=== PATIENT | female | born 1995 | race Caucasian/White ===

== ENCOUNTER 2018-01-29 19:05 | Observation (INO) ==
[2018-01-29] MEDS ORDERED: Morphine Inj 4 MG/ML Vial IV.PUSH ONE (19:27)
[2018-01-29] MEDS ORDERED: Sod Chloride 0.9% Inj 1,000 ML IV.SIG ONE (19:27)
[2018-01-29] MEDS ORDERED: Famotidine PF Inj 20 MG/2 ML Vial IV.PUSH ONE (20:07)
[2018-01-29] MEDS ORDERED: MethylPREDNISolone Sod Succinate Inj 125 MG/2 ML Vial IV.PUSH ONE (20:07)
[2018-01-29 20:09] LABS: Baso % (Auto) 0.5 % (0.0-2.0); Eos # (Auto) 0.1 th/mm3 (0.0-0.4); Eos % (Auto) 0.9 % (0.0-4.0); Hemoglobin 14.3 gm/dL (11.6-15.3); Lymph # (Auto) 2.1 th/mm3 (1.0-4.8); Lymph % (Auto) 20.5 % (9.0-44.0); Mean Corpuscular HGB Conc 33.2 % (32.0-36.0); Mean Corpuscular Hemoglobin 29.7 pg (27.0-34.0); Mean Corpuscular Volume 89.7 fL (80.0-100.0); Mean Platelet Volume 7.5 fL (7.0-11.0); Mono # (Auto) 0.5 th/mm3 (0.0-0.9); Mono % (Auto) 5.4 % (0.0-8.0); Neut # (Auto) 7.3 th/mm3 (1.8-7.7); Neut % (Auto) 72.7 % (16.0-70.0); Platelet Count 320 th/mm3 (150-450); Red Cell Distribution Width 13.4 % (11.6-17.2)
[2018-01-29 20:13] LABS: Amorphous Sediment,Urine Rare /hpf; Bilirubin,Urine Negative (Negative); Clarity,Urine Hazy (Clear); Color,Urine Yellow (Yellw/Straw); Glucose,Urine (UA) Negative (Negative); Leukocyte Esterase,Urine Negative (Negative); Mucus,Urine Few /lpf (Occasional); Nitrite,Urine Negative (Negative); Specific Gravity,Urine 1.017 (1.002-1.035); Squamous Epithelial Cell,Urine 9 /hpf (0-5)
[2018-01-29 20:20] LABS: Alanine Aminotransferase 26 U/L (9-42)
[2018-01-29 20:22] LABS: Alkaline Phosphatase 123 U/L (45-117); Total Protein 8.3 g/dL (6.4-8.2)
[2018-01-29 20:23] LABS: Albumin 4.2 g/dL (3.4-5.0); Anion Gap 7 meq/L (5-15); Aspartate Aminotransferase 23 U/L (16-38); Blood Urea Nitrogen 11 mg/dL (7-18); Calcium 8.9 mg/dL (8.5-10.1); Carbon Dioxide 26.7 meq/L (21.0-32.0); Chloride 105 meq/L (98-107); Glomerular Filtration Rate 74 mL/min (>89); Glucose,Random 87 mg/dL (74-106); Lipase 132 U/L (73-393); Potassium 3.8 meq/L (3.5-5.1); Sodium 139 meq/L (136-145)
--- NOTE | 2018-01-29 20:41 | CT ---
EXAM DATE: 01/29/2018 8:32 PM EDT AGE/SEX: 22 years / Female INDICATIONS: Right lower quadrant pain; possible appendicitis. CLINICAL DATA: This is the patient's initial encounter. Patient reports that signs and symptoms have been present for 1 day and indicates a pain score of 6/10. MEDICAL/SURGICAL HISTORY: Asthma. None. ORAL CONTRAST: No oral contrast ingested. RADIATION DOSE: 7.71 CTDI (mGy) COMPARISON: . TECHNIQUE: Multiple contiguous axial images were obtained through the abdomen and pelvis following b olus infusion of 96 ml Omnipaque 350 (iohexol) nonionic water-soluble contrast as a single exam dos e. No oral contrast ingested. Using automated exposure control and adjustment of the mA and/or kV ac cording to patient size, radiation dose was kept as low as reasonably achievable to obtain optimal di agnostic quality images. DICOM format image data is available electronically for review and comparis on. FINDINGS: Abdomen CT: The liver, spleen, pancreas, kidneys, adrenals are unremarkable. There is no evidence for any appreci able pathological adenopathy, free fluid, or bowel obstruction. Pelvic CT: There is no evidence for mass, abscess formation, or any significant adenopathy within the pelvis. T he appendix appears swollen measures almost 8 mm in size with strandy densities surrounding it. CONCLUSION: Acute appendicitis. Electronically signed by: Edgardo Mckinley MD 01/29/2018 8:39 PM EDT
--- NOTE | 2018-01-29 20:56 | ED ---
HPI General Chief Complaint: Abdominal Pain Stated Complaint: ABD Pain Time Seen by Provider: 01/29/18 19:27 Source: patient Mode of arrival: ambulatory Limitations: no limitations History of Present Illness MD complaint: abdominal pain Onset (ago): hour(s) (18) Pain Consistency: constant Location: RLQ Severity: moderate Quality: cramping and aching Radiation: epigastric Migration to: LUQ, RUQ, LLQ and epigastric Relieving factors: nothing Exacerbating factors: movement Associated symptoms: nausea and anorexia Related Data Date of Last Menstrual Period: 01/23/18 Patient : No Home Medications Medication Instructions Recorded Confirmed No Known Home Medications 01/29/18 01/29/18 Allergies Allergy/AdvReac Type Severity Reaction Status Date / Time morphine Allergy Intermediate URTICARIA Verified 01/29/18 21:59 penicillin G Allergy Unknown Anaphylaxis Verified 01/29/18 19:16 ORANGES AND ORANGE JUICE. AdvReac Unknown BEE STINGS Uncoded 01/29/18 19:16 Review of Systems ROS: all other systems reviewed are negative Constitutional Denies fever(s) PMFSH Medical History Medical History Asthma (Acute) Surgical History Surgical History No history of previous surgery (Acute) Social History Social History Substance History: No History of Abuse Smoking Status: Current every day smoker Tobacco Type: Cigarettes How Often Do You Have a Drink Containing Alcohol: Never Recent Travel in [facility] within the Last 8 Weeks: No Recent Out of Country Travel within the Last 8 Weeks: No Immunization History Tetanus Immunization: Unsure Hx Influenza Vaccine This Season: No Exam Narrative Exam Narrative: GENERAL: 22-year-old female pleasant well-nourished well- developed no acute distress SKIN: Focused skin assessment warm/dry. HEAD: Atraumatic. Normocephalic. EYES: Pupils equal and round. No scleral icterus. No injection or drainage. ENT: No nasal bleeding or discharge. Mucous membranes pink and moist. NECK: Trachea midline. No JVD. CARDIOVASCULAR: Regular rate and rhythm. No murmur appreciated. RESPIRATORY: No accessory muscle use. Clear to auscultation. Breath sounds equal bilaterally. GASTROINTESTINAL: Soft. Tenderness palpation in the right abdomen. No rebound. No guarding. MUSCULOSKELETAL: No obvious deformities. No clubbing. No cyanosis. No edema. NEUROLOGICAL: Awake and alert. No obvious cranial nerve deficits. Motor grossly within normal limits. Normal speech. PSYCHIATRIC: Appropriate mood and affect; insight and judgment normal. Course Initial Documented Vital Signs Temperature 98.5 F 01/29/18 19:14 Pulse Rate 94 H 01/29/18 19:14 Respiratory Rate 20 01/29/18 19:14 Blood Pressure 137/73 01/29/18 19:14 Pulse Oximetry 100 01/29/18 19:14 Last Documented Vital Signs Temperature 98.5 F 01/29/18 19:14 Pulse Rate 101 H 01/29/18 19:16 Respiratory Rate 18 01/29/18 19:16 Blood Pressure 124/71 01/29/18 19:16 Pulse Oximetry 100 01/29/18 19:16 Medical Decision Making MDM Narrative Medical decision making narrative: 22-year-old female arrives with abdominal pain for about 18 hours. Initially was epigastric now it is in the right lower quadrant. She is tenderness at McBurney's point. Workup reveals acute appendicitis. IV fluids given here. Cefoxitin ordered. Of note the patient had a urticarial response to 4 mg of morphine received Benadryl Pepcid and Solu- Medrol with good effect. Call placed to Dr. Lovell at 900pm. We discussed the case at approximately 9:30 PM. The patient will be admitted to him with some transition orders including dilaudid (pt had urticaria with morphine earlier) every 4 hours. The patient received 2 g of cefotetan in ED. Belly is not peritoneal. Plan for OR about 5 or 6 am per general surgery. Medical Screen Exam Complete: Yes Emergency Medical Condition: Yes Differential Diagnosis Differential Diagnosis: Constipation, Gastritis, Acute Cholecystitis, Biliary Colic, Pancreatitis, POON, Hepatitis, Bowel Obstruction, Cystitis, Mesenteric Ischemia, AAA, Appendicitis, Renal Stone/Hydronephrosis, GERD, perforated viscous Lab Data Lab results reviewed: Yes I reviewed the patient's lab results. Lab results narrative: LFTs and lipase reviewed Result diagrams: 01/29/18 19:55 01/29/18 19:55 POC Results POC Urine Results Negative Lab Results 01/29/18 01/29/18 01/29/18 Range/Units 19:50 19:55 19:55 WBC 10.0 (4.0-11.0) th/mm3 RBC 4.80 (4.00-5.30) mil/mm3 Hgb 14.3 (11.6-15.3) gm/dL Hct 43.0 (35.0-46.0) % MCV 89.7 (80.0-100.0) fL MCH 29.7 (27.0-34.0) pg MCHC 33.2 (32.0-36.0) % RDW 13.4 (11.6-17.2) % Plt Count 320 (150-450) th/mm3 MPV 7.5 (7.0-11.0) fL Neut % (Auto) 72.7 H (16.0-70.0) % Lymph % (Auto) 20.5 (9.0-44.0) % Owen % (Auto) 5.4 (0.0-8.0) % Eos % (Auto) 0.9 (0.0-4.0) % Baso % (Auto) 0.5 (0.0-2.0) % Neut # (Auto) 7.3 (1.8-7.7) th/mm3 Lymph # (Auto) 2.1 (1.0-4.8) th/mm3 Owen # (Auto) 0.5 (0.0-0.9) th/mm3 Eos # (Auto) 0.1 (0.0-0.4) th/mm3 Baso # (Auto) 0.0 (0.0-0.2) th/mm3 WBC Differential . Differential Comment Auto diff final Sodium 139 (136-145) meq/L Potassium 3.8 (3.5-5.1) meq/L Chloride 105 (98-107) meq/L Carbon Dioxide 26.7 (21.0-32.0) meq/L Anion Gap 7 (5-15) meq/L BUN 11 (7-18) mg/dL Creatinine 0.96 (0.50-1.00) mg/dL Estimated GFR 74 L (>89) mL/min Random Glucose 87 (74-106) mg/dL Calcium 8.9 (8.5-10.1) mg/dL Total Bilirubin 0.4 (0.2-1.0) mg/dL AST 23 (16-38) U/L ALT 26 (9-42) U/L Alkaline Phosphatase 123 H (45-117) U/L Total Protein 8.3 H (6.4-8.2) g/dL Albumin 4.2 (3.4-5.0) g/dL Lipase 132 (73-393) U/L Beta HCG, Quant (0-5) mIU/mL Urine Color Yellow (Yellw/Straw) Urine Clarity Hazy H (Clear) Urine pH 7.0 (5.0-8.5) Ur Specific [place] 1.017 (1.002-1.035) Urine Protein Negative (Neg-Trace) mg/dL Urine Glucose (UA) Negative (Negative) mg/dL Urine Ketones Negative (Negative) mg/dL Urine Occult Blood Negative (Negative) Urine Nitrate Negative (Negative) Urine Bilirubin Negative (Negative) Urine Urobilinogen 2.0 H (Less than 2) mg/dL Ur Leukocyte Esterase Negative (Negative) Urine RBC 1 (0-3) /hpf Urine WBC 2 (0-5) /hpf Ur Squamous Epith Cells 9 (0-5) /hpf Amorphous Sediment Rare H (None) /hpf Urine Mucus Few H (Occasional) /lpf Micro UA Comment Culture not ind Ur Microscopic Review Not Reportable Urine Culture Comments Culture not ind 01/29/18 Range/Units 19:55 WBC (4.0-11.0) th/mm3 RBC (4.00-5.30) mil/mm3 Hgb (11.6-15.3) gm/dL Hct (35.0-46.0) % MCV (80.0-100.0) fL MCH (27.0-34.0) pg MCHC (32.0-36.0) % RDW (11.6-17.2) % Plt Count (150-450) th/mm3 MPV (7.0-11.0) fL Neut % (Auto) (16.0-70.0) % Lymph % (Auto) (9.0-44.0) % Owen % (Auto) (0.0-8.0) % Eos % (Auto) (0.0-4.0) % Baso % (Auto) (0.0-2.0) % Neut # (Auto) (1.8-7.7) th/mm3 Lymph # (Auto) (1.0-4.8) th/mm3 Owen # (Auto) (0.0-0.9) th/mm3 Eos # (Auto) (0.0-0.4) th/mm3 Baso # (Auto) (0.0-0.2) th/mm3 WBC Differential Differential Comment Sodium (136-145) meq/L Potassium (3.5-5.1) meq/L Chloride (98-107) meq/L Carbon Dioxide (21.0-32.0) meq/L Anion Gap (5-15) meq/L BUN (7-18) mg/dL Creatinine (0.50-1.00) mg/dL Estimated GFR (>89) mL/min Random Glucose (74-106) mg/dL Calcium (8.5-10.1) mg/dL Total Bilirubin (0.2-1.0) mg/dL AST (16-38) U/L ALT (9-42) U/L Alkaline Phosphatase (45-117) U/L Total Protein (6.4-8.2) g/dL Albumin (3.4-5.0) g/dL Lipase (73-393) U/L Beta HCG, Quant Less than 1 (0-5) mIU/mL Urine Color (Yellw/Straw) Urine Clarity (Clear) Urine pH (5.0-8.5) Ur Specific [place] (1.002-1.035) Urine Protein (Neg-Trace) mg/dL Urine Glucose (UA) (Negative) mg/dL Urine Ketones (Negative) mg/dL Urine Occult Blood (Negative) Urine Nitrate (Negative) Urine Bilirubin (Negative) Urine Urobilinogen (Less than 2) mg/dL Ur Leukocyte Esterase (Negative) Urine RBC (0-3) /hpf Urine WBC (0-5) /hpf Ur Squamous Epith Cells (0-5) /hpf Amorphous Sediment (None) /hpf Urine Mucus (Occasional) /lpf Micro UA Comment Ur Microscopic Review Urine Culture Comments Imaging Data Radiologist's impression: Abdomen/Pelvis CT 01/29/18 19:27 CONCLUSION: Acute appendicitis. Discharge Plan Discharge Disposition Patient Disposition: 30 Still Patient Physicians Team ED Provider: Jean Carlos Kc Primary Care Provider: Primary Care Nikkie Victoria Attending Provider: Anthony Lovell Status ED Status: Admitted Observation Patient
[2018-01-29] MEDS ORDERED: Morphine Inj 4 MG/ML Vial IV.PUSH PRN (21:18)
[2018-01-29] MEDS: Sod Chloride 0.9% Inj 1,000 ML IV.CONT SCH (21:56)
[2018-01-29] MEDS ORDERED: HYDROmorphone PF Inj 0.5 MG/0.5 ML Syringe IV.PUSH PRN (21:58)
[2018-01-29] MEDS: HYDROmorphone PF Inj 2 MG/ML Vial IV.PUSH PRN (23:31)
[2018-01-30] MEDS ORDERED: Chlorhexidine Gluconate 2% 1 Pack (2 Cloths) TOPICAL ONE (00:45)
[2018-01-30] MEDS ORDERED: Sodium Chlor 0.9% Inj 500 ML IV.CONT ONE (00:45)
[2018-01-30 06:09] LABS: Activated Partial Thrombo Time 29.9 sec (24.3-30.1); INR 1.1 Ratio
[2018-01-30] MEDS: HYDROmorphone PF Inj 2 MG/ML Vial IV.PUSH PRN ×3 (06:39→13:15)
[2018-01-30] MEDS: Sod Chloride 0.9% Inj 1,000 ML IV.CONT SCH ×2 (09:20→13:30)
[2018-01-30] MEDS ORDERED: Bupivacaine/Epinephrine Inj 0.25% 50 ML Vial ONE (11:36)
[2018-01-30] MEDS ORDERED: Phenylephrine/NS 1000 MCG/10ML Syringe IV.PUSH ONE (12:00)
[2018-01-30] MEDS ORDERED: Glycopyrrolate Inj 1 MG/5 ML Syringe IV.PUSH ONE (12:00)
[2018-01-30] MEDS ORDERED: Neostigmine Inj 5 MG/5 ML Syringe IV.PUSH ONE (12:00)
[2018-01-30] MEDS ORDERED: Lidocaine PF 1% Inj 5 ML Syringe OTHER ONE (12:00)
[2018-01-30] MEDS ORDERED: SODIUM CHLOR 0.9% IV.SIG ONE (13:00)
[2018-01-30] MEDS ORDERED: CEFOXITIN IV.SIG ONE (13:00)
[2018-01-30] MEDS ORDERED: fentaNYL Citrate Inj 100 MCG/2 ML Ampul ONE (13:09)
--- NOTE | 2018-01-30 13:10 | MH ---
cc: Anthony Lovell MD DATE OF ADMISSION: 01/29/2018 CHIEF COMPLAINT: Acute appendicitis. HISTORY OF PRESENT ILLNESS: The patient is a 22-year-old female who presented to [facility] with 24 hours of increasing lower abdominal pain. The patient has a history of ovarian cysts and a crampy type pain; however, the patient stated this was more severe and a slightly different pain. She underwent a workup including a CT scan, which did show inflammation around the appendix and appendicolith concerning for acute appendicitis. The patient was clinically stable and was recommended admission for IV antibiotics. General surgery was asked to admit the patient for evaluation and management. The patient denies fevers, chills, night sweats, nausea, vomiting, constipation, diarrhea or any other symptoms. REVIEW OF SYSTEMS: A 12-point review of systems was conducted with the patient and is negative except for the pertinent positives mentioned above in the history of present illness. PAST MEDICAL HISTORY: 1. History ovarian cysts. 2. Asthma. PAST SURGICAL HISTORY: No major operations. ALLERGIES: MORPHINE, PENICILLIN G, HONEY BEE VENOM, ORANGES AND ORANGE JUICE. HOME MEDICATIONS: None. SOCIAL HISTORY: The patient smokes cigarettes daily. Never drinks alcohol. Denies illicit drug use or a history of drug abuse. FAMILY HISTORY: Reviewed, noncontributory. PHYSICAL EXAMINATION: VITAL SIGNS: Temperature 97.3 degrees, heart rate 56, respiratory rate 16, blood pressure 103/56, O2 saturation 99% on room air. GENERAL: The patient does not appear acutely or chronically ill. HEENT: Her head is normocephalic, atraumatic. Pupils equal, round, reactive and accommodating to light. Sclerae are anicteric. Oral cavity is clear. Airway is patent. NECK: Supple. No JVD. No lymphadenopathy. LUNGS: Breath sounds present bilaterally. Nonlabored breathing pattern. HEART: Regular rate and rhythm. No murmurs. ABDOMEN: Soft, subjectively tender in the right lower quadrant with some voluntary guarding. No surgical scars. No hernias. No organomegaly. No ascites. Normal bowel sounds. EXTREMITIES: No clubbing, cyanosis or edema. BACK: No CVA tenderness. NEUROLOGIC: The patient is alert and oriented x 3. Mood, judgment and insight are intact. Cranial nerves 2-12 are grossly intact. Nonfocal peripheral exam. LABORATORY VALUES: White blood cell count 10, hemoglobin 13. Urinalysis is unremarkable. IMAGING DATA: CT scan shows acute appendicitis. ASSESSMENT AND PLAN: The patient is a 22-year-old female with acute appendicitis. The patient is stable. She is not septic and is not ruptured. We will admit the patient, place her on antibiotics, intravenous fluids and pain medicine and make the patient n.p.o. We have posted the patient for a laparoscopic appendectomy. I discussed this treatment recommendation with the patient, her boyfriend and her mother and they are in agreement with the treatment plan. I discussed risks, benefits and alternatives including surgical risks as well as risk of recurrent abscess after surgery. They are in agreement and would like to proceed with surgery. We will schedule the surgery for the next available time for urgent cases in the operating room based on schedule availability. MD JANEEN Olivo/aj , 11:46 AM , 11:54 AM
[2018-01-30] MEDS ORDERED: Ketorolac Inj 30 MG/ML (IVP) Vial ONE (13:25)
[2018-01-30] MEDS ORDERED: Ketorolac Inj 30 MG/ML (IVP) Vial IV.PUSH PRN (13:28)
[2018-01-30 16:56] VITALS: BP 95/53; PULSE 61; RESP 14; TEMP 97.9; O2SAT 98
--- NOTE | 2018-02-02 15:18 | MP ---
cc: Anthony Lovell MD DATE OF OPERATION: 01/30/2018 PREOPERATIVE DIAGNOSIS: Acute appendicitis. POSTOPERATIVE DIAGNOSIS: Acute uncomplicated appendicitis. PROCEDURE PERFORMED: Laparoscopic appendectomy. ANESTHESIA: General. ATTENDING SURGEON: Anthony Lovell MD RN CLINICAL RESEARCH: Staff. COMPLICATIONS: None. FINDINGS: Suppurative appendicitis without evidence of gangrene or rupture. BLOOD LOSS: Less than 10 mL. INDICATIONS FOR PROCEDURE: The patient is a 22-year-old female who was diagnosed with acute appendicitis in the emergency department [facility]. The patient had 24 hours of increasing right lower quadrant pain and on presentation was noted to have a CT scan concerning for acute appendicitis. General surgery, admitted and saw the patient. We recommend laparoscopic appendectomy for treatment of her acute appendicitis. We discussed the risks, benefits and alternatives with the patient, and she agreed to undergo the procedure. DESCRIPTION OF PROCEDURE: The patient was taken to the operating room and placed in a supine position and placed under general endotracheal anesthesia. The patient's abdomen was prepped and draped in sterile fashion. Timeout was performed. The abdomen was entered through a Carlos-type technique with a curvilinear incision below the umbilicus with an 11-blade scalpel. Hemostats were used to dissect down to the fascia. The fascia was directly opened under visualization. I placed a 10 mm trocar through the fascial defect without difficulty. We then insufflated the abdomen and placed a 5 mm 30-degree camera in the abdomen and surveyed the abdomen. There is no evidence of complication from our entry. We then placed two 5 mm ports in the suprapubic and left lower quadrant position and under direct visualization of the laparoscope. We did use local anesthetic at all port sites. We were able to survey the abdomen. There is no evidence of any pathology in the abdomen. We did turn our attention towards the right lower quadrant, relocate some omentum, and expose an inflamed, suppurative, erythematous and injected appendix. This was easily accessed and grasped with a [place] retractor. Using a white staple load on an [place] 60 mm laparoscopic TIANA stapler to divide the base of the appendix as it splayed into the cecum. We were then able to divide the mesentery with a second white load on the TIANA stapler. The appendix was removed from the abdomen with an EndoCatch bag. We did inspect our staple line at the mesentery and the cecum. This was intact with no evidence of leak and no bleeding. We replaced the omentum back over the right lower quadrant. We turned our attention towards completion and removed all ports under visualization of the laparoscope and expressed pneumoperitoneum. We closed our Carlos entry fascial defect with a [id number] 0 Vicryl suture. We closed the skin with 4-0 Monocryl and Dermabond. The patient was discontinued from anesthesia and taken to the PACU in stable condition. The patient tolerated the procedure well with no apparent complications. All counts were correct. I was present and scrubbed throughout the entire procedure. MD JANEEN Olivo/cody , 04:07 PM , 04:19 PM
== END 2018-01-30 18:30 | disposition home or self-care (01) ==
LOC: NEDA 19:05 → NEPE 19:05 → NEDA 21:55 → N06 22:14
PROVIDERS: ADMIT Surgery; ATTEND Surgery
PROC: LAPAPPY (ICD-10-PCS; 2018-01-30 11:47)
DX: K21.9 Gastro-esophageal reflux disease without esophagitis; K35.80 Unspecified acute appendicitis; Z88.0 Allergy status to penicillin; J45.909 Unspecified asthma, uncomplicated; Z88.5 Allergy status to narcotic agent; F17.210 Nicotine dependence, cigarettes, uncomplicated